=== PATIENT | female | born 1970 | race African-American/Black ===

== ENCOUNTER 2018-01-01 13:52 | Emergency (ER) | payer OTHER ==
[~2018-01-01] VITALS: Ht 157.5 cm; Wt 62.6 kg
[2018-01-01 13:58] VITALS: BP_SYST 128
[2018-01-01] MEDS ORDERED: KETOROLAC TROMETHAMINE 60 MG/2 ML VIAL IM ONE (14:15)
[2018-01-01] MEDS ORDERED: IBUPROFEN 600 MG TABLET PO ONE (14:30)
[2018-01-01 15:49] VITALS: BP_SYST 106
== END 2018-01-01 15:48 | disposition home or self-care (01) ==
LOC: SED 13:52
DX: R07.89 Other chest pain (principal); V89.2XXA Person injured in unspecified motor-vehicle accident, traffic, initial encounter; W22.11XA Striking against or struck by driver side automobile airbag, initial encounter; Y93.I9 Activity, other involving external motion; Y92.89 Other specified places as the place of occurrence of the external cause; Y99.8 Other external cause status
CPT/HCPCS: 71045; 99283; J1885; 99284